=== PATIENT | male | born 1985 | race African-American/Black ===

== ENCOUNTER 2017-09-24 11:25 | Emergency (ER) | payer BC ==
[~2017-09-24] VITALS: Ht 180.3 cm; Wt 118.0 kg
[2017-09-24] MEDS ORDERED: ONDANSETRON 4MG ODT PO STA (13:52)
[2017-09-24] MEDS ORDERED: ACETAMINOPHEN 325MG TABLET PO STA (13:52)
[2017-09-24] MEDS ORDERED: ALBUTEROL (0.083%) 2.5MG/3ML NEB HHN STA (14:05)
[2017-09-24 16:17] VITALS: BP 128/69
== END 2017-09-24 16:24 | disposition home or self-care (01) ==
LOC: ER 12:20
DX: B34.9 Viral infection, unspecified (principal); R03.0 Elevated blood-pressure reading, without diagnosis of hypertension
CPT/HCPCS: 71045; 93005; 94640; 99284; J7611; Q0162